=== PATIENT | female | born 1970 | race Caucasian/White ===

== ENCOUNTER 2017-09-09 07:34 | Day surgery (SDC) | payer OTHER ==
[2017-09-09] MEDS ORDERED: PROPOFOL 40 ML (09:26)
[2017-09-09] MEDS ORDERED: LIDOCAINE 100 MG SYRINGE (09:26)
[2017-09-09] MEDS ORDERED: FENTAnyl 50 MCG/ML VIAL (09:27)
== END 2017-09-09 11:01 | disposition home or self-care (01) ==
LOC: GIL 07:34
DX: R19.4 Change in bowel habit (principal); K57.90 Diverticulosis of intestine, part unspecified, without perforation or abscess without bleeding; K64.8 Other hemorrhoids
CPT/HCPCS: 45380; 84703; 88305